=== PATIENT | female | born 1985 | race Hispanic/Latino ===

== ENCOUNTER 2017-04-15 08:09 | Emergency (ER) | payer BC, OTHER ==
[2017-04-15 08:15] VITALS: BP 123/72
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
[2017-04-15] MEDS ORDERED: TORADOL IM ONE (09:06)
[2017-04-15] MEDS ORDERED: MOTRIN PO ONE (09:18)
== END 2017-04-15 09:31 | disposition home or self-care (01) ==
LOC: ED 08:09
DX: S16.1XXA Strain of muscle, fascia and tendon at neck level, initial encounter (principal); M79.1 Myalgia; I10 Essential (primary) hypertension; V49.49XA Driver injured in collision with other motor vehicles in traffic accident, initial encounter; Y93.89 Activity, other specified; Y92.89 Other specified places as the place of occurrence of the external cause; Y99.8 Other external cause status
CPT/HCPCS: 99282; J1885